=== PATIENT | female | born 1945 | race Caucasian/White ===

== ENCOUNTER 2019-02-27 14:01 | Emergency (ER) | payer MEDICARE, OTHER ==
[~2019-02-27] VITALS: Ht 165.1 cm; Wt 97.5 kg
[~2019-02-27 14:01] MED LIST: ALBU3IS INH; ALBU90OI61 INH; AMLO5 PO; ASPI81EC PO; ATOR20 PO; BENZ100A PO; BETA BLOCKER; BIOTIN1 MG PO; CELE100 PO; CELE200 PO; CEPH500 PO; CRANBERRY250 MG PO; CREAM TOP; CRUTCH4 USE; ENAL20 PO; FLUSAL2505 INH; GUAI600T33 PO; LEVSOD150 PO; LOVA40 PO; Levothyroxine200 MCG PO; METF500 PO; MONDOXYNE NL100 MG PO; MULVITMIND PO; Mucinex600 MG PO; OXYACE5T PO; OXYM.05NI; POLY500 PO; PRED20 PO; PROBIOTIC1 EAC1 PO; Refresh Eye Dr1 EACH BOTHEYES; Sudafed 12 Hou120 MG PO; TEMA15 PO; THYROID; Vitamin C1000 M1 PO
[2019-02-27] MEDS ORDERED: Bactrim Ds Tab1 EACH PO (14:31)
== END 2019-02-27 14:33 | disposition home or self-care (01) ==
LOC: ER 14:01
DX: L03.114 Cellulitis of left upper limb (principal); Z91.012 Allergy to eggs; Z88.8 Allergy status to other drugs, medicaments and biological substances; Z88.1 Allergy status to other antibiotic agents; Z88.5 Allergy status to narcotic agent; Z79.899 Other long term (current) drug therapy; Z79.84 Long term (current) use of oral hypoglycemic drugs; Z79.82 Long term (current) use of aspirin; I10 Essential (primary) hypertension; J45.909 Unspecified asthma, uncomplicated; Z86.73 Personal history of transient ischemic attack (TIA), and cerebral infarction without residual deficits
CPT/HCPCS: 99283